=== PATIENT | male | born 1995 ===

== ENCOUNTER → 2017-07-26 | Outpatient (CLI) | payer OTHER | END | disposition home or self-care (01) | LOC: C.RDSM 15:42 | PROVIDERS: ATTEND Orthopaedic Surgery | DX: M25.551 Pain in right hip (principal) ==

== ENCOUNTER 2019-01-02 16:55 | Inpatient (IN) ==
--- OUTSIDE RECORDS SUMMARY | 2019-01-02 16:58 | External Medical Summary | Continuity of Care Document ---
:1995 Author Name Taco Parker, Provider Address Unavailable Unavailable , Care Team Providers Name Role Phone Case Shari DOAN Unavailable [email or web address] [email or web address], NO Unavailable Unavailable Problems Active medical history not documented Allergies and Adverse Reactions Allergy history not documented Medications Medications not documented Procedures Procedures not documented Immunizations Immunizations not documented Plan of Treatment Planned Encounters Appointment; Shari Morel PA-C Start: 27-Feb-2019 10:00 Re quest Planned Observations Planned Goals not documented Results No Known Results Results not documented Encounters Appointment; Shari Morel PA-C 27-Feb-2019 10:00 Encounter Diagnosis: Problem not documented
[2019-01-02 17:20] LABS: Appearance Urine Clear (Clear); Bilirubin Urine Negative (Negative); Blood Urine Negative (Negative); Color Urine Yellow; Glucose Urine UA Negative (Negative); Ketones Urine Negative (Negative); Leukocyte Esterase Urine Negative (Negative); Nitrite Urine Negative (Negative); Protein Urine Negative (Negative); Urobilinogen Urine Negative (Negative); pH Urine 5.5 (4.5-7.5)
[2019-01-02 17:27] LABS: Pregnancy Test, Urine Negative (Negative)
[2019-01-02 17:32] LABS: Basophils # (auto) 0.05 K/uL (0-0.2); Basophils % (auto) 0.8 %; Eosinophils % (auto) 3.4 %; Hematocrit (blood only) 39.7 % (37-47); Hemoglobin 13.8 g/dL (12.0-16.0); Immature Granulocytes # (auto) 0.01 K/uL (0.00-0.02); Immature Granulocytes % (auto) 0.2 %; Lymphocytes # (auto) 2.02 K/uL (1.2-3.4); Lymphocytes % (auto) 33.9 %; Mean Corpuscular Hgb Conc 34.8 g/dL (32-36); Mean Corpuscular Volume 88.8 fL (80-100); Mean Platelet Volume 10.5 fL (7.4-10.4); Monocytes # (auto) 0.51 K/uL (0.11-0.59); Monocytes % (auto) 8.6 %; Neutrophils # (auto) 3.17 K/uL (1.4-6.5); Neutrophils % (auto) 53.1 %; Platelet Count 206 K/uL (130-400); RDW Coefficient of Variation 11.8 % (11.5-14.5); RDW Standard Deviation 38.4 fL (36.4-46.3); Red Blood Count 4.47 M/uL (4.2-5.4); White Blood Count 5.96 K/uL (4.8-10.8)
[2019-01-02 17:46] LABS: Amphetamines+Metham, Urine Neg (Neg); Barbiturates, Urine Neg (Neg); Benzodiazepine, Urine Neg (Neg); Cocaine, Urine Neg (Neg); MDMA (Ecstacy), Urine Neg (Neg); Methadone, Urine Neg (Neg); Opiate, Urine Neg (Neg); Phencyclidine, Urine Neg (Neg)
[2019-01-02 17:53] LABS: BUN Creatinine Ratio 13.2 (10-20); Calcium 9.1 mg/dl (8.5-10.1); Creatinine Clr Calc Pharmacy 83.6 ml/min; Est GFR (Non-African American) 108.7; Potassium 3.4 mmol/L (3.5-5.1)
[2019-01-02 18:03] LABS: Bilirubin,Total 0.4 mg/dl (0.2-1)
[2019-01-02 18:10] LABS: Acetaminophen < 2 ug/ml (10-30); Salicylate < 1.7 mg/dl (2.8-20)
[2019-01-02] MEDS ORDERED: ALBUTEROL HFA 8 GM INHALER INH ONE (18:22)
--- NOTE | 2019-01-02 20:12 | Emergency Department Note ---
Entered by Vane Douglass acting as a scribe for History of Present Illness General Chief complaint: Mental Health Evaluation Stated complaint: MENTAL HEALTH EVALUATION Time Seen by Provider: 01/02/19 17:02 Source: patient Limitations: no limitations History of Present Illness Onset (ago): day(s) (a few) Location: head Severity: similar to prior episodes Pain Consistency: + other (worsening) Quality: + other (anxiety) Associated symptoms: + denies other symptoms (change in diet); no fever/chills The patient is a 23 year old female who presents to the Emergency Room with complaints of anxiety that worsened over the past few days. She reports that she was seen at [facility] earlier today and referred to the ER for her plan to overdose on pills. The patient reports that she has several stressors. She notes that she can't afford rent, she had a recent "falling out" with her mother, she has been working 30 hours a week, and her semester recently began. The patient denies any fevers or change in diet. She states that she takes Topamax, Lamictal, and Synthroid, noting that she regularly takes these medications. The patient report that this is similar to her past episodes of suicidal ideation. She states that she does not want her parents contacted. Home Medications Home Medications Medication Instructions Recorded Confirmed Type albuterol sulfate [Ventolin HFA] 2 puff INHALATION DIRECTED 01/02/19 01/02/19 History epinephrine 0.3 mg IM DIRECTED 01/02/19 01/02/19 History lamotrigine [Lamictal] 100 mg PO HS 01/02/19 01/03/19 History levothyroxine [Synthroid] 25 mcg PO HS 01/02/19 01/03/19 History topiramate [Topamax] 50 mg PO BID 01/02/19 01/02/19 History venlafaxine 37.5 mg PO QAM #30 cap 01/07/19 Rx Allergies Allergy/AdvReac Type Severity Reaction Status Date / Time soy Allergy Difficulty Verified 01/02/19 18:11 Breathing Past Med/Surg History Medical History History of self-harm Hypothyroidism Migraines Suicidal ideation Social History Preferred Language: [place] Communication Ability: Effective Beliefs That Will Affect Care: None Feels Safe at Home: Yes Smoking Status: Never smoker Review of Systems See HPI for pertinent positives & negatives. and A total of 10 systems reviewed and were otherwise negative Physical Exam Vital Signs Vital Signs - 24 hr 01/02/19 16:57 01/02/19 18:54 Temperature 36.8 C Temperature Source Oral Sepsis Recent Fever Within 48 Hours No Sepsis New/Unexplained Change in Mental Status No Sepsis Action Taken by Nursing No Action Required Pulse Rate 73 Pulse Rate [Left Finger] 64 Pulse Rhythm [Left Finger] Regular Respiratory Rate 12 18 Respiratory Effort / Characteristics Non-Labored Non-Labored Respiratory Depth Normal Normal Respiratory Pattern Regular Blood Pressure 103/69 Blood Pressure [Left Arm] 101/64 Blood Pressure Mean 80 Blood Pressure Mean [Left Arm] 76 Pulse Oximetry 100 99 Oxygen Delivery Method Room Air Room Air GENERAL: Awake, alert, well-appearing, in no acute distress HENT: Normocephalic, atraumatic. Oropharynx unremarkable. EYES: Normal conjunctiva. Sclera non-icteric. NECK: Supple. No nuchal rigidity. FROM. No JVD. RESPIRATORY: Clear to auscultation. CARDIAC: Regular rate, normal rhythm. Extremities warm and well perfused. Pulses equal. ABDOMEN: Soft, non-distended. No tenderness to palpation. No rebound or guarding. No masses. RECTAL: Deferred. MUSCULOSKELETAL: Chest examination reveals no tenderness. The back is symmetrical on inspection without obvious abnormality. There is no CVA tenderness to palpation. No joint edema. LOWER EXTREMITIES: Calves are equal size bilaterally and non-tender. No edema. No discoloration. NEURO: Normal sensorium. No sensory or motor deficits noted. SKIN: No rash or jaundice noted. Course 1713: The patient was evaluated in room A06. A complete history and physical exam was performed. 1839: I reassessed the patient, and she was doing well. 1914: The psych special education case manager updated me on the patient's case. 2044: The patient was accepted to [address] [place] [address]. Administered Medications Discontinued Medications Albuterol (Ventolin Hfa) 2 puffs INH PRN ONE Stop: 01/02/19 18:23 Last Admin: 01/02/19 21:32 Dose: Not Given Documented by: [id number] Lamotrigine (Lamictal) 100 mg PO HS SEVERIANO Stop: 02/01/19 20:59 Last Admin: 01/06/19 21:08 Dose: 100 mg Documented by: [id number] Admin: 01/05/19 21:07 Dose: 100 mg Documented by: [id number] Admin: 01/04/19 21:14 Dose: 100 mg Documented by: [id number] Admin: 01/03/19 21:11 Dose: 100 mg Documented by: [id number] Admin: 01/02/19 21:41 Dose: 100 mg Documented by: [id number] Levothyroxine Sodium (Synthroid) 25 mcg PO HS SEVERIANO Stop: 02/01/19 20:59 Last Admin: 01/06/19 21:08 Dose: 25 mcg Documented by: [id number] Admin: 01/05/19 21:07 Dose: 25 mcg Documented by: [id number] Admin: 01/04/19 21:15 Dose: 25 mcg Documented by: [id number] Admin: 01/03/19 21:11 Dose: 25 mcg Documented by: [id number] Admin: 01/02/19 21:41 Dose: 25 mcg Documented by: [id number] Topiramate (Topamax) 50 mg PO [facility] Stop: 02/01/19 20:59 Last Admin: 01/02/19 21:41 Dose: 50 mg Documented by: [id number] Topiramate (Topamax) 50 mg PO BID SEVERIANO Stop: 02/02/19 11:29 Last Admin: 01/07/19 08:38 Dose: 50 mg Documented by: [id number] Admin: 01/06/19 21:08 Dose: 50 mg Documented by: [id number] Admin: 01/06/19 10:02 Dose: 50 mg Documented by: [id number] Admin: 01/05/19 21:07 Dose: 50 mg Documented by: [id number] Admin: 01/05/19 09:03 Dose: 50 mg Documented by: [id number] Admin: 01/04/19 21:14 Dose: 50 mg Documented by: [id number] Admin: 01/04/19 09:19 Dose: 50 mg Documented by: [id number] Admin: 01/03/19 21:11 Dose: 50 mg Documented by: [id number] Admin: 01/03/19 12:24 Dose: 50 mg Documented by: [id number] Venlafaxine HCl (Effexor Extended Release) 37.5 mg PO QAM SEVERIANO Stop: 02/02/19 11:29 Last Admin: 01/07/19 08:38 Dose: 37.5 mg Documented by: [id number] Admin: 01/06/19 10:02 Dose: 37.5 mg Documented by: [id number] Admin: 01/05/19 09:03 Dose: 37.5 mg Documented by: [id number] Admin: 01/04/19 09:19 Dose: 37.5 mg Documented by: [id number] Admin: 01/03/19 12:24 Dose: 37.5 mg Documented by: [id number] Medical Decision Making Differential Diagnosis Etiologies such as psychiatric disorder, infection, hypoglycemia, electrolyte abnormalities, cardiac sources, intracerebral event, toxicological process, neurologic disorder, as well as others were entertained. Medical Records Attestation: I reviewed the patient's medical records. Home Medications Current Medication List: was personally reviewed by me Laboratory Data Attestation: I reviewed the patient's lab results. Result diagrams: 01/02/19 17:14 01/02/19 17:14 Lab Results 01/02/19 01/02/19 01/02/19 Range/Units 17:08 17:08 17:08 WBC (4.8-10.8) K/uL RBC (4.2-5.4) M/uL Hgb (12.0-16.0) g/dL Hct (37-47) % MCV (80-100) fL MCH (25-34) pg MCHC (32-36) g/dL RDW Std Deviation (36.4-46.3) fL RDW Coeff of Josafat (11.5-14.5) % Plt Count (130-400) K/uL MPV (7.4-10.4) fL Immature Gran % (Auto) % Neut % (Auto) % Lymph % (Auto) % Gallia % (Auto) % Eos % (Auto) % Baso % (Auto) % Immature Gran # (Auto) (0.00-0.02) K/uL Neut # (Auto) (1.4-6.5) K/uL Lymph # (Auto) (1.2-3.4) K/uL Gallia # (Auto) (0.11-0.59) K/uL Eos # (Auto) (0-0.5) K/uL Baso # (Auto) (0-0.2) K/uL Sodium (136-145) mmol/L Potassium (3.5-5.1) mmol/L Chloride (98-107) mmol/L Carbon Dioxide (21-32) mmol/L Anion Gap (3-11) BUN (7-18) mg/dl Creatinine (0.6-1.2) mg/dl Est Cr Clr Drug Dosing ml/min Est GFR ( Amer) Est GFR (Non-Af Amer) BUN/Creatinine Ratio (10-20) Glucose (70-99) mg/dl Calcium (8.5-10.1) mg/dl Total Bilirubin (0.2-1) mg/dl AST (15-37) U/L ALT (12-78) U/L Alkaline Phosphatase (45-117) U/L Total Protein (6.4-8.2) gm/dl Albumin (3.4-5.0) gm/dl Globulin (2.5-4.0) gm/dl Albumin/Globulin Ratio (0.9-2) TSH (0.300-4.500) uIu/ml Urine Color Yellow Urine Appearance Clear (Clear) Urine pH 5.5 (4.5-7.5) Ur Specific Desdemona 1.020 (1.000-1.030) Urine Protein Negative (Negative) Urine Glucose (UA) Negative (Negative) Urine Ketones Negative (Negative) Urine Blood Negative (Negative) Urine Nitrite Negative (Negative) Urine Bilirubin Negative (Negative) Urine Urobilinogen Negative (Negative) Ur Leukocyte Esterase Negative (Negative) Urine Test Negative (Negative) Salicylates (2.8-20) mg/dl Urine Opiates Screen Neg (Neg) Ur Methadone, Qual Neg (Neg) Acetaminophen (10-30) ug/ml Urine Barbiturates Neg (Neg) Lamotrigine (4.0-18.0) mcg/mL Ur Phencyclidine (PCP) Neg (Neg) U Amphetamin/Meth Scrn Neg (Neg) MDMA (Ecstasy) Screen Neg (Neg) U Benzodiazepines Scrn Neg (Neg) Ur Cocaine Metabolite Neg (Neg) U Marijuana (THC) Screen Neg (Neg) Ethyl Alcohol mg/dL (0-3) mg/dl 01/02/19 01/02/19 01/02/19 Range/Units 17:14 17:14 17:14 WBC 5.96 (4.8-10.8) K/uL RBC 4.47 (4.2-5.4) M/uL Hgb 13.8 (12.0-16.0) g/dL Hct 39.7 (37-47) % MCV 88.8 (80-100) fL MCH 30.9 (25-34) pg MCHC 34.8 (32-36) g/dL RDW Std Deviation 38.4 (36.4-46.3) fL RDW Coeff of Josafat 11.8 (11.5-14.5) % Plt Count 206 (130-400) K/uL MPV 10.5 H (7.4-10.4) fL Immature Gran % (Auto) 0.2 % Neut % (Auto) 53.1 % Lymph % (Auto) 33.9 % Gallia % (Auto) 8.6 % Eos % (Auto) 3.4 % Baso % (Auto) 0.8 % Immature Gran # (Auto) 0.01 (0.00-0.02) K/uL Neut # (Auto) 3.17 (1.4-6.5) K/uL Lymph # (Auto) 2.02 (1.2-3.4) K/uL Gallia # (Auto) 0.51 (0.11-0.59) K/uL Eos # (Auto) 0.20 (0-0.5) K/uL Baso # (Auto) 0.05 (0-0.2) K/uL Sodium 139 (136-145) mmol/L Potassium 3.4 L (3.5-5.1) mmol/L Chloride 109 H (98-107) mmol/L Carbon Dioxide 22 (21-32) mmol/L Anion Gap 8.0 (3-11) BUN 10 (7-18) mg/dl Creatinine 0.78 (0.6-1.2) mg/dl Est Cr Clr Drug Dosing 83.6 ml/min Est GFR ( Amer) 126.0 Est GFR (Non-Af Amer) 108.7 BUN/Creatinine Ratio 13.2 (10-20) Glucose 90 (70-99) mg/dl Calcium 9.1 (8.5-10.1) mg/dl Total Bilirubin 0.4 (0.2-1) mg/dl AST 12 L (15-37) U/L ALT 14 (12-78) U/L Alkaline Phosphatase 56 (45-117) U/L Total Protein 8.0 (6.4-8.2) gm/dl Albumin 4.0 (3.4-5.0) gm/dl Globulin 4.0 (2.5-4.0) gm/dl Albumin/Globulin Ratio 1.0 (0.9-2) TSH 2.420 (0.300-4.500) uIu/ml Urine Color Urine Appearance (Clear) Urine pH (4.5-7.5) Ur Specific Desdemona (1.000-1.030) Urine Protein (Negative) Urine Glucose (UA) (Negative) Urine Ketones (Negative) Urine Blood (Negative) Urine Nitrite (Negative) Urine Bilirubin (Negative) Urine Urobilinogen (Negative) Ur Leukocyte Esterase (Negative) Urine Test (Negative) Salicylates < 1.7 L (2.8-20) mg/dl Urine Opiates Screen (Neg) Ur Methadone, Qual (Neg) Acetaminophen < 2 L (10-30) ug/ml Urine Barbiturates (Neg) Lamotrigine (4.0-18.0) mcg/mL Ur Phencyclidine (PCP) (Neg) U Amphetamin/Meth Scrn (Neg) MDMA (Ecstasy) Screen (Neg) U Benzodiazepines Scrn (Neg) Ur Cocaine Metabolite (Neg) U Marijuana (THC) Screen (Neg) Ethyl Alcohol mg/dL (0-3) mg/dl 01/02/19 01/02/19 Range/Units 17:14 17:14 WBC (4.8-10.8) K/uL RBC (4.2-5.4) M/uL Hgb (12.0-16.0) g/dL Hct (37-47) % MCV (80-100) fL MCH (25-34) pg MCHC (32-36) g/dL RDW Std Deviation (36.4-46.3) fL RDW Coeff of Josafat (11.5-14.5) % Plt Count (130-400) K/uL MPV (7.4-10.4) fL Immature Gran % (Auto) % Neut % (Auto) % Lymph % (Auto) % Gall[place] % (Auto) % Eos % (Auto) % Baso % (Auto) % Immature Gran # (Auto) (0.00-0.02) K/uL Neut # (Auto) (1.4-6.5) K/uL Lymph # (Auto) (1.2-3.4) K/uL Gallia # (Auto) (0.11-0.59) K/uL Eos # (Auto) (0-0.5) K/uL Baso # (Auto) (0-0.2) K/uL Sodium (136-145) mmol/L Potassium (3.5-5.1) mmol/L Chloride (98-107) mmol/L Carbon Dioxide (21-32) mmol/L Anion Gap (3-11) BUN (7-18) mg/dl Creatinine (0.6-1.2) mg/dl Est Cr Clr Drug Dosing ml/min Est GFR ( Amer) Est GFR (Non-Af Amer) BUN/Creatinine Ratio (10-20) Glucose (70-99) mg/dl Calcium (8.5-10.1) mg/dl Total Bilirubin (0.2-1) mg/dl AST (15-37) U/L ALT (12-78) U/L Alkaline Phosphatase (45-117) U/L Total Protein (6.4-8.2) gm/dl Albumin (3.4-5.0) gm/dl Globulin (2.5-4.0) gm/dl Albumin/Globulin Ratio (0.9-2) TSH (0.300-4.500) uIu/ml Urine Color Urine Appearance (Clear) Urine pH (4.5-7.5) Ur Specific Desdemona (1.000-1.030) Urine Protein (Negative) Urine Glucose (UA) (Negative) Urine Ketones (Negative) Urine Blood (Negative) Urine Nitrite (Negative) Urine Bilirubin (Negative) Urine Urobilinogen (Negative) Ur Leukocyte Esterase (Negative) Urine Test (Negative) Salicylates (2.8-20) mg/dl Urine Opiates Screen (Neg) Ur Methadone, Qual (Neg) Acetaminophen (10-30) ug/ml Urine Barbiturates (Neg) Lamotrigine 0.5 L (4.0-18.0) mcg/mL Ur Phencyclidine (PCP) (Neg) U Amphetamin/Meth Scrn (Neg) MDMA (Ecstasy) Screen (Neg) U Benzodiazepines Scrn (Neg) Ur Cocaine Metabolite (Neg) U Marijuana (THC) Screen (Neg) Ethyl Alcohol mg/dL < 3.0 (0-3) mg/dl Blood Pressure Blood Pressure Findings: Normal blood pressure Blood Pressure Disposition: did not require urgent referral MDM Narrative This is a 23-year-old female who presents emergency department, over concerns that she is going to harm herself. She was independently evaluated by the case psychiatric manager decision support. Patient was medically cleared by me. She was accepted to [facility]. Impression & Plan Mood disorder Discharge Plan Visit Data *Final* Discharge Date/Time: 01/02/19 20:49 Chief Complaint: Mental Health Evaluation Stated Complaint: MENTAL HEALTH EVALUATION ED Provider: Robert Castillo Discharge Problem: Mood disorder Patient Disposition: Admitted As Inpatient Discharge Instructions Interventions: ED Discharge Assessment Last Done: 01/02/19 20:49 The scribe's documentation has been prepared under my direction and personally reviewed by me in its entirety. I confirm that the note above accurately reflects all work, treatment, procedures, and medical decision making performed by me.
[2019-01-02] MEDS ORDERED: BISMUTH SUBSALICYLATE PER ML OMNICELL CHARGE PO PRN (20:31)
[2019-01-02] MEDS ORDERED: SODIUM CHLORIDE 0.65% NA SOLN 45 ML (OCEAN) PRN (20:31)
[2019-01-02] MEDS ORDERED: MAGNESIUM HYDROXIDE SUSP 30 ML UDC PO PRN (20:31)
[2019-01-02] MEDS ORDERED: ALUMINUM/MAGNESIUM SUSP 30 ML UDC PO PRN (20:31)
[2019-01-02] MEDS ORDERED: ACETAMINOPHEN 325 MG TAB PO PRN (20:31)
[2019-01-02] MEDS ORDERED: TOPIRAMATE 50 MG TAB PO SCH (21:00)
[2019-01-02] MEDS: lamoTRIgine 100 MG TAB PO SCH (21:41)
[2019-01-02] MEDS: LEVOTHYROXINE SODIUM 25 MCG TABLET PO SCH (21:41)
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
[2019-01-03] MEDS: TOPIRAMATE 50 MG TAB PO SCH ×2 (12:24→21:11)
[2019-01-03] MEDS: VENLAFAXINE HCL XR 37.5 MG CAPXR PO SCH (12:24)
[2019-01-03] MEDS: lamoTRIgine 100 MG TAB PO SCH (21:11)
[2019-01-03] MEDS: LEVOTHYROXINE SODIUM 25 MCG TABLET PO SCH (21:11)
[2019-01-04] MEDS ORDERED: LEVOTHYROXINE SODIUM 25 MCG TABLET PO SCH (09:00)
[2019-01-04] MEDS: VENLAFAXINE HCL XR 37.5 MG CAPXR PO SCH (09:19)
[2019-01-04] MEDS: TOPIRAMATE 50 MG TAB PO SCH ×2 (09:19→21:14)
--- NOTE | 2019-01-04 10:26 | Psychiatric Progress Note ---
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 She reports worsening mood and anxiety over the past several months in the context of multiple psychosocial stressors, including a falling out with her mother whom she now has no contact with. She has very poor supports, and although she has friends and a boyfriend, does not tell them anything about her emotions or what she is dealing with. She has had worsening suicidal thoughts recently with multiple plans, and access to the means. She was unable to contract for safety outside of the hospital and signed in voluntarily. On admission she was started on venlafaxine XR as she responded poorly to multiple SSRI trials in the remote past. Inpatient treatment is medically necessary due to the severity of symptoms and risk for suicide if discharged prematurely. (1) Depression: 01/03 -continue inpatient treatment with suicide checks for safety. -Discussed diagnoses and treatment recommendations including use of medications, therapy, and behavioral techniques to maximize functioning. -Continue lamotrigine and discussed a trial of an antidepressant to target mood and anxiety symptoms. As she reports poor response to to SSRIs in the past, discussed a trial of venlafaxine XR. Reviewed risks, benefits, and side effects, and provided her with an up-to-date patient handout on the medication. She consented to a trial and will start 37.5 mg daily. -Discussed behavioral techniques to improve mood, including good nutrition, engaging in activities she enjoys, and utilizing supports. She admits she does not talk to anyone about what she is going through. Explore options for family meeting. -Refer for outpatient psychiatric care. 01/04 -tolerating venlafaxine XR, consider increase to 75 mg daily tomorrow. -Encourage patient to continue to attend groups, and to try to participate. -Encouraged her to think about how she can best use her supports, primarily her friends and boyfriend here in [place] and friends back home in [place]. She is declining a family meeting. -Patient referred to [facility] for ongoing therapy and psychiatric care. (2) PTSD (post-traumatic stress disorder): 01/03 -discussed diagnosis and reviewed treatment options. Start in venlafaxine XR as above. Coordinate care with therapist at [facility]. (3) Anxiety: 01/03 -encourage group attendance and participation, work on healthy coping skills. Education adjustments as above. Hydroxyzine as needed. (4) Anorexia: 01/03 -BMI 18.7. Patient is in treatment with Dr. Casanova at [facility]. Get a release to coordinate care. Encouraged her to focus on ensuring she is getting the minimum adequate nutrition here. Offered meeting with the dietitian which she declined, but continue to assess p.o. intake. Discussed that medications a re unlikely to be effective for mood and anxiety disorders if she is malnourished. 01/04 -eating here, but reports specific food preferences, like spicy food, that she cannot get here. He called [facility] to coordinate care with Dr. Casanova, and left a message relating hospitalization and requesting a callback if she has any recommendations or input. Inventory Assets Strengths: In school, has friends and a boyfriend Needs: Openness with friends about her difficulties, outpatient treatment Risk Factors Assessment Male: No : Yes Do You Have Access To A Gun?: No Health Problems: No Mental Health Diagnoses: Yes Substance Use Disorders: No Previous Attempt: Yes Family History of Suicide: No Previous Psychiatric Hospitalization: Yes Hopelessness: Yes Smoker: No Protective Factors Assessment : No Responsible for Young Children: No Employed: Yes ([employer]) Stable Relationships: Yes Supportive Family: No Interval History Identifying Information 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 Chief Complaint "Alright". Review of Systems Sleep Information Total Hours of Sleep: 8.5 Sleep Comments: pt on q-15 minute checks Meal Information Percent Meal Consumed - Breakfast: 100 Percent Meal Consumed - Lunch: 100 Percent Meal Consumed - Dinner: 75 Subjective Subjective Patient was seen & assessed and interval progress reviewed with nursing and social work. Staff reports she continues to endorse suicidal thoughts, and is declining a family meeting, stating that she has no one that she considers a support. She went to bed directly after dinner and slept through the night. On my assessment she was seen with Pratiti Ty, MS2. She reports mood is "better," she's been more social with the other patients, and anxiety has lessened. Eating has been a challenge, "it has it's ups and down," as she has specific food p references (spicy) that are not available here. She reports ongoing suicidal thoughts, but they are less frequent, and she feels safe in the hospital. She is going to groups but "I don't say too much." She states that her friends here at school and her boyfriend do not know about any of her stressors or mental health issues, and she does not want to share that information with them. Some of her friends from home are aware of some of the stressors within her family, but she notes there are multiple things they do not know about, and again she is unwilling to share that information with them. She is just started working on her patient workbook. Physical Exam Psychiatric Orientation: alert Apperance: appropriately dressed, appropriately groomed and appeared stated age Eye Contact: good eye contact Motor Behavior: steady gait and station and no abnormal motor movements Speech minimal, soft Affect: + depressed affect Mood: + depressed mood and + anxious mood But improved from admission. Thought Process: goal directed thought process Thought Content: reality based without delusions Suicidal Thoughts: + reports suicidal thoughts Homicidal Thoughts: denies homicidal thoughts Hallucinations: no auditory hallucinations Cognition: recent memory grossly intact, attention grossly intact and language grossly intact Estimated Intelligence: consistent with education level Insight: + fair insight Judgement: + fair judgement Vital Signs (Past 24 Hours) Last Vital Signs Temp 36.8 C 01/04/19 06:43 Pulse 86 01/04/19 06:44 Resp 16 01/04/19 06:43 BP 96/60 L 01/04/19 06:44 Pulse Ox 100 01/02/19 20:49 Results & Data Current Inpatient Medications Current Inpatient Medications: Current Inpatient Medications Acetaminophen (Tylenol) 650 mg PO Q4H PRN PRN Reason: Headache or Minor Fever Stop: 02/01/19 20:30 Al Hydrox/Mg Hydrox/Simethicone (Maalox) 30 ml PO Q4H PRN PRN Reason: GI Upset Stop: 02/01/19 20:30 Bismuth Subsalicylate (Kaopectate) 15 ml PO PRN PRN PRN Reason: Loose Stool Stop: 02/01/19 20:30 Hydroxyzine HCl (Vistaril) 25 mg PO Q4H PRN PRN Reason: Anxiety Stop: 02/01/19 20:30 Hydroxyzine HCl (Vistaril) 50 mg PO HSZ PRN PRN Reason: Insomnia Stop: 02/01/19 20:30 Lamotrigine (Lamictal) 100 mg PO HS SEVERIANO Stop: 02/01/19 20:59 Last Admin: 01/03/19 21:11 Dose: 100 mg Documented by: Levothyroxine Sodium (Synthroid) 25 mcg PO HS SEVERIANO Stop: 02/01/19 20:59 Last Admin: 01/03/19 21:11 Dose: 25 mcg Documented by: Magnesium Hydroxide (Milk Of Magnesia) 30 ml PO DAILY PRN PRN Reason: Constipation Stop: 02/01/19 20:30 Sodium Chloride ([place] Nasal) 1 - 2 sprays NA PRN PRN PRN Reason: Nasal Dryness/Congestion Stop: 02/01/19 20:30 Topiramate (Topamax) 50 mg PO BID SEVERIANO Stop: 02/02/19 11:29 Last Admin: 01/04/19 09:19 Dose: 50 mg Documented by: Venlafaxine HCl (Effexor Extended Release) 37.5 mg PO QAM SEVERIANO Stop: 02/02/19 11:29 Last Admin: 01/04/19 09:19 Dose: 37.5 mg Documented by: Mental Health & Subst Abuse Tx Psychiatrist Name of Psychiatrist: CHEYENNE Psychiatrist's Time of Appointment with Psychiatrist: Will be assigned after follow up appt with therapist Psychiatric Appointment Comment: [facility] Therapist Name of Therapist: CHEYENNE - Dr. Sultan Watson Therapist's Therapy Appointment Comment: [facility] Tip Cementer Name of Tip Cementer: [facility] Phone Number for Tip Cementer: [phone] Case Management Appointment Comment: [address] [place] [address] Post Discharge Appointments Primary Care Physician Name Of Family Doctor: Dr. Augustine Echols Primary Care Time of Appointment with PCP: Follow up as needed Provider Appointment Comment: [address] [place] [address], [place] [address] Contact Information Discharge Discharge Address: [address] [place] [address] CPT Code CPT Code 85501 (1) Depression Depression Type: major depressive disorder Major depression recurrence: recurrent Active/Remission status: currently active Major depression episode severity: severe Psychotic features: without psychotic features Qualified Code(s): F33.2 - Major depressive disorder, recurrent severe without psychotic features
[2019-01-04] MEDS: lamoTRIgine 100 MG TAB PO SCH (21:14)
[2019-01-04] MEDS: LEVOTHYROXINE SODIUM 25 MCG TABLET PO SCH (21:15)
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
[2019-01-05] MEDS: TOPIRAMATE 50 MG TAB PO SCH ×2 (09:03→21:07)
[2019-01-05] MEDS: VENLAFAXINE HCL XR 37.5 MG CAPXR PO SCH (09:03)
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
[2019-01-05] MEDS: lamoTRIgine 100 MG TAB PO SCH (21:07)
[2019-01-05] MEDS: LEVOTHYROXINE SODIUM 25 MCG TABLET PO SCH (21:07)
[2019-01-06] MEDS: TOPIRAMATE 50 MG TAB PO SCH ×2 (10:02→21:08)
[2019-01-06] MEDS: VENLAFAXINE HCL XR 37.5 MG CAPXR PO SCH (10:02)
--- NOTE | 2019-01-06 13:13 | Psychiatric Progress Note ---
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 She reports worsening mood and anxiety over the past several months in the context of multiple psychosocial stressors, including a falling out with her mother whom she now has no contact with. She has limited supports, but since she has been here has decided to confide in her boyfriend, whom she has a meeting with this afternoon. If she continues to improve, anticipate discharge as early as tomorrow. (1) Depression: 01/03 -continue inpatient treatment with suicide checks for safety. -Discussed diagnoses and treatment recommendations including use of medications, therapy, and behavioral techniques to maximize functioning. -Continue lamotrigine and discussed a trial of an antidepressant to target mood and anxiety symptoms. As she reports poor response to to SSRIs in the past, discussed a trial of venlafaxine XR. Reviewed risks, benefits, and side effects, and provided her with an up-to-date patient handout on the medication. She consented to a trial and will start 37.5 mg daily. -Discussed behavioral techniques to improve mood, including good nutrition, engaging in activities she enjoys, and utilizing supports. She admits she does not talk to anyone about what she is going through. Explore options for family meeting. -Refer for outpatient psychiatric care. 01/04 -tolerating venlafaxine XR, consider increase to 75 mg daily tomorrow. -Encourage patient to continue to attend groups, and to try to participate. -Encouraged her to think about how she can best use her supports, primarily her friends and boyfriend here in [place] and friends back home in [place]. She is declining a family meeting. -Patient referred to [facility] for ongoing therapy and psychiatric care. 01/05 -Patient continues to benefit from participating in group and activity therapies. She is able to describe several of the coping mechanisms she is learned and says she is feeling much stronger and better prepared to face the stress associated with community reentry. 01/06 -family meeting with boyfriend today. (2) PTSD (post-traumatic stress disorder): 01/03 -discussed diagnosis and reviewed treatment options. Start in venlafaxine XR as above. Coordinate care with therapist at [facility]. 01/05-Today, the patient was able to discuss her traumatic events without demonstrating particular anxiety or distress. (3) Anxiety: 01/03 -encourage group attendance and participation, work on healthy coping skills. Education adjustments as above. Hydroxyzine as needed. 01/05 -The patient reports that she is feeling significantly less anxious and notes that she has learned new coping strategies here in the hospital. (4) Anorexia: 01/03 -BMI 18.7. Patient is in treatment with Dr. Casanova at [facility]. Get a release to coordinate care. Encouraged her to focus on ensuring she is getting the minimum adequate nutrition here. Offered meeting with the dietitian which she declined, but continue to assess p.o. intake. Discussed that medications are unlikely to be effective for mood and anxiety disorders if she is malnourished. 01/04 -eating here, but reports specific food preferences, like spicy food, that she cannot get here. Dr. Weiss spoke with Dr. Casanova to coordinate care. 01/05 -patient tells us that she is continuing to restrict her food intake out of a fear of becoming fat. She notes that she has been given the diagnosis of "borderline eating disorder." She has a history of intentionally maintaining a body weight that, as described, it is at least 15% below ideal body weight through compensatory behaviors that have included restriction, excess exercise, and diet pills. Inventory Assets Strengths: In school, has friends and a boyfriend Needs: Openness with friends about her difficulties, outpatient treatment Risk Factors Assessment Male: No : Yes Do You Have Access To A Gun?: No Health Problems: No Mental Health Diagnoses: Yes Substance Use Disorders: No Previous Attempt: Yes Family History of Suicide: No Previous Psychiatric Hospitalization: Yes Hopelessness: Yes Smoker: No Protective Factors Assessment : No Responsible for Young Children: No Employed: Yes ([employer]) Stable Relationships: Yes Supportive Family: No Interval History Identifying Information 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 Chief Complaint "Pretty good". Review of Systems Sleep Information Total Hours of Sleep: 5.75 Sleep Comments: toileted at 0300-back to bed/sleep Meal Information Percent Meal Consumed - Breakfast: 100 Percent Meal Consumed - Lunch: 50 Percent Meal Consumed - Dinner: 100 Subjective Subjective Patient was seen & assessed and interval progress reviewed with nursing and social work. Staff report she agreed to a meeting with her boyfriend which is scheduled for today. On my assessment, she reports she told her boyfriend about her mental health struggles, family issues, and trauma. She states he was supportive and it went well. She denies SI today. She continues to restrict her food intake, "the eating thoughts are always there." She has been walking laps around the unit with a peer. Sleep is improved. Physical Exam Psychiatric Orientation: alert and cooperative Thin white female, dressed in baggy sweatpants and sweatshirt. Good hygiene and grooming. Seated in no acute distress. Eye Contact: good eye contact Motor Behavior: steady gait and station and no abnormal motor movements Speech: normal rate/rhythm/volume of speech Speech slightly soft Affect mildly anxious, but brighter than earlier in hospitalization. Reactive and appropriate. "Getting better." Thought Process: goal directed thought process Thought Content: reality based without delusions Suicidal Thoughts: denies suicidal thoughts Homicidal Thoughts: denies homicidal thoughts Hallucinations: no auditory hallucinations Cognition: recent memory grossly intact, attention grossly intact and language grossly intact Estimated Intelligence: consistent with education level Insight: + limited insight Judgement: + fair judgement Vital Signs (Past 24 Hours) Last Vital Signs Temp 36.9 C 01/06/19 06:36 Pulse 98 H 01/06/19 06:38 Resp 18 01/06/19 06:36 BP 91/55 L 01/06/19 06:38 Pulse Ox 100 01/02/19 20:49 Results & Data Laboratory Results Laboratory Results - last 24 hr 01/02/19 17:14 Lamotrigine 0.5 L Current Inpatient Medications Current Inpatient Medications: Current Inpatient Medications Acetaminophen (Tylenol) 650 mg PO Q4H PRN PRN Reason: Headache or Minor Fever Stop: 02/01/19 20:30 Al Hydrox/Mg Hydrox/Simethicone (Maalox) 30 ml PO Q4H PRN PRN Reason: GI Upset Stop: 02/01/19 20:30 Bismuth Subsalicylate (Kaopectate) 15 ml PO PRN PRN PRN Reason: Loose Stool Stop: 02/01/19 20:30 Hydroxyzine HCl (Vistaril) 25 mg PO Q4H PRN PRN Reason: Anxiety Stop: 02/01/19 20:30 Hydroxyzine HCl (Vistaril) 50 mg PO HSZ PRN PRN Reason: Insomnia Stop: 02/01/19 20:30 Lamotrigine (Lamictal) 100 mg PO HS SEVERIANO Stop: 02/01/19 20:59 Last Admin: 01/05/19 21:07 Dose: 100 mg Documented by: Levothyroxine Sodium (Synthroid) 25 mcg PO HS SEVERIANO Stop: 02/01/19 20:59 Last Admin: 01/05/19 21:07 Dose: 25 mcg Documented by: Magnesium Hydroxide (Milk Of Magnesia) 30 ml PO DAILY PRN PRN Reason: Constipation Stop: 02/01/19 20:30 Sodium Chloride (Pacific Nasal) 1 - 2 sprays NA PRN PRN PRN Reason: Nasal Dryness/Congestion Stop: 02/01/19 20:30 Topiramate (Topamax) 50 mg PO BID SEVERIANO Stop: 02/02/19 11:29 Last Admin: 01/06/19 10:02 Dose: 50 mg Documented by: Venlafaxine HCl (Effexor Extended Release) 37.5 mg PO QAM SEVERIANO Stop: 02/02/19 11:29 Last Admin: 01/06/19 10:02 Dose: 37.5 mg Documented by: Mental Health & Subst Abuse Tx Psychiatrist Name of Psychiatrist: [facility] Psychiatrist's Time of Appointment with Psychiatrist: Will be assigned after follow up appt with therapist Psychiatric Appointment Comment: [facility] Therapist Name of Therapist: CHEYENNE - Dr. Sultan Watson Therapist's Date of Therapist Appointment: 01/09/19 Time of Therapist Appointment: 3:30pm Therapy Appointment Comment: [facility] Home Health Caregiver Name of Home Health Caregiver: [facility] - [facility] Phone Number for Home Health Caregiver: [phone] Date of Appointment with Home Health Caregiver: 01/10/19 Time of Appointment with Home Health Caregiver: 11:30am Case Management Appointment Comment: [address] [place] [address] Post Discharge Appointments Primary Care Physician Name Of Family Doctor: Dr. Augustine Echols [facility] Time of Appointment with PCP: Follow up as needed Provider Appointment Comment: [address] [place] [address] Contact Information Discharge Discharge Address: [address] [place] [address] MARY KAY Hernandez [id number] CPT Code CPT Code 62796 (1) Depression Depression Type: major depressive disorder Major depression recurrence: recurrent Active/Remission status: currently active Major depression episode severity: severe Psychotic features: without psychotic features Qualified Code(s): F33.2 - Major depressive disorder, recurrent severe without psychotic features
[2019-01-06] MEDS: lamoTRIgine 100 MG TAB PO SCH (21:08)
[2019-01-06] MEDS: LEVOTHYROXINE SODIUM 25 MCG TABLET PO SCH (21:08)
[2019-01-07] MEDS: VENLAFAXINE HCL XR 37.5 MG CAPXR PO SCH (08:38)
[2019-01-07] MEDS: TOPIRAMATE 50 MG TAB PO SCH (08:38)
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
== END 2019-01-07 10:30 | disposition home or self-care (01) | DRG 885 ==
LOC: ED 16:55 → 3S 20:31
DX: F41.9 Anxiety disorder, unspecified; R63.0 Anorexia; F33.9 Major depressive disorder, recurrent, unspecified; F43.10 Post-traumatic stress disorder, unspecified